=== PATIENT | female | born 1995 | race Caucasian/White ===

== ENCOUNTER 2018-07-20 19:10 | Observation (INO) | payer MEDICAID ==
[~2018-07-20] VITALS: Ht 172.7 cm; Wt 65.3 kg
[2018-07-20] MEDS ORDERED: LACTATED RINGERS 1,000 ML IV SCH (20:45)
[2018-07-20] MEDS ORDERED: PNV1TABL50 MT (20:45)
[2018-07-20] MEDS ORDERED: ACETAMINOPHEN 500MG TABLET PO NR (20:45)
== END 2018-07-20 21:45 | disposition home or self-care (01) ==
LOC: ER 19:10 → 8 EST LDRP 19:41
PROVIDERS: ADMIT Obstetrics & Gynecology; ATTEND Obstetrics & Gynecology
DX: O26.893 Other specified pregnancy related conditions, third trimester (principal); M54.9 Dorsalgia, unspecified; Z3A.38 38 weeks gestation of pregnancy
CPT/HCPCS: 99281; G0378; 96360; 96361

== ENCOUNTER 2018-08-01 21:56 | Observation (INO) | payer MEDICAID ==
[~2018-08-01] VITALS: Ht 172.7 cm; Wt 66.7 kg
[~2018-08-01 21:56] MED LIST: PNV1TABL50 MT
[2018-08-01] MEDS ORDERED: ROPIVACAINE HCL/PF EPIDURAL 200 ML EPI SCH (23:00)
[2018-08-01] MEDS ORDERED: DEXT 5%/LR + PITOCIN 20UNITS/L 1,000 ML IV SCH (23:04)
[2018-08-01] MEDS ORDERED: LACTATED RINGERS 1,000 ML IV SCH (23:04)
[2018-08-01] MEDS ORDERED: NALOXONE HCL 0.4 MG/ML 1ML VIAL IM PRN (23:15)
[2018-08-01] MEDS ORDERED: LIDOCAINE HCL 1% 20ML VIAL (Pyxis) INJ INFIL SCH (23:15)
[2018-08-01] MEDS ORDERED: METHYLERGONOVINE MALEATE 0.2 MG/ML IM PRN (23:15)
[2018-08-01] MEDS ORDERED: BUTORPHANOL TARTRATE 2 MG/ML VIAL IV PRN (23:15)
[2018-08-02 00:31] LABS: BASOPHILS % 0.5 % (0.0-2.0); HEMATOCRIT. 37.2 % (36.0-48.0); HEMOGLOBIN. 13.2 g/dL (12.0-16.0); LYMPHOCYTES % 15.6 % (20.0-50.0); MEAN CORPUSCULAR VOLUME 93.3 fL (81.0-99.0); MEAN PLATELET VOLUME 9.7 fl (7.4-10.4); MONOCYTES % 7.3 % (2.0-8.0); NEUTROPHILS % 75.6 % (40.0-76.0); PLATELET 193 x1000/uL (130-400); RED BLOOD CELL COUNT 3.99 mill/uL (4.2-5.4); RED CELL DISTRIBUTION WIDTH 12.6 % (11.6-14.6)
[2018-08-02 00:34] LABS: CLARITY URINE CLEAR (CLEAR); COLOR URINE YELLOW (YELLOW); KETONES URINE NEGATIVE (NEGATIVE); LEUKOCYTE ESTERASE URINE TRACE (NEGATIVE); NITRITE URINE NEGATIVE (NEGATIVE); OCCULT BLOOD URINE NEGATIVE (NEGATIVE); PH URINE 6.5 (4.5-8.0); PROTEIN URINE NEGATIVE (NEGATIVE); UROBILINOGEN URINE 0.2 E.U./dL (0.2-1.0)
[2018-08-02 00:37] LABS: INR 0.9; PARTIAL THROMBOPLASTIN TIME 25.8 sec (23.4-31.0); PROTHROMBIN TIME 9.3 sec (9.6-11.0)
[2018-08-02 00:42] LABS: *AMPHETAMINES SCREEN URINE NEGATIVE (NEGATIVE)
[2018-08-02 00:43] LABS: *BARBITURATES SCREEN URINE NEGATIVE (NEGATIVE); *BENZODIAZEPINES SCREEN URINE NEGATIVE (NEGATIVE); *COCAINE SCREEN URINE NEGATIVE (NEGATIVE); METHADONE URINE SCREEN NEGATIVE (NEGATIVE); OPIATES URINE SCREEN NEGATIVE (NEGATIVE); PHENCYCLIDINE URINE SCREEN NEGATIVE (NEGATIVE)
[2018-08-02 00:44] LABS: CANNABINOID URINE SCREEN NEGATIVE (NEGATIVE)
[2018-08-02 01:28] LABS: HEPATITIS B SURFACE ANTIGEN NEGATIVE
== END 2018-08-02 01:05 | disposition home or self-care (01) ==
LOC: 8 EST LDRP 21:56
PROVIDERS: ADMIT Obstetrics & Gynecology; ATTEND Obstetrics & Gynecology
DX: O62.9 Abnormality of forces of labor, unspecified (principal); O48.0 Post-term pregnancy; Z3A.40 40 weeks gestation of pregnancy
CPT/HCPCS: 36415; 80305; 81003; 85025; 85610; 85730; 86592; 86703; 86762; 86850; 86900; 86901; 87340; 96360; 99281; G0378

== ENCOUNTER 2018-08-02 09:15 | Observation (INO) | payer MEDICAID ==
[~2018-08-02] VITALS: Ht 172.7 cm; Wt 67.1 kg
[2018-08-02] MEDS ORDERED: ROPIVACAINE HCL/PF EPIDURAL 200 ML EPI SCH (09:45)
[2018-08-02] MEDS ORDERED: FENTANYL CITRATE/PF 50MCG/ML 2ML VIAL ONE (09:58)
[2018-08-02] MEDS ORDERED: LACTATED RINGERS 1,000 ML IV SCH (10:36)
[2018-08-02] MEDS ORDERED: CARBOPROST TROMETHAMINE 250 MCG/ML AMPUL IM PRN (10:45)
[2018-08-02] MEDS ORDERED: METHYLERGONOVINE MALEATE 0.2 MG/ML IM PRN (10:45)
[2018-08-02] MEDS ORDERED: NALOXONE HCL 0.4 MG/ML 1ML VIAL IM PRN (10:45)
[2018-08-02] MEDS ORDERED: LIDOCAINE HCL 1% 20ML VIAL (Pyxis) INJ INFIL SCH (10:45)
[2018-08-02] MEDS ORDERED: EPHEDRINE SULFATE 50MG/ML VIAL ONE (11:34)
[2018-08-02] MEDS: DEXT 5%/LR + PITOCIN 20UNITS/L 1,000 ML IV SCH ×2 (13:50→17:11)
[2018-08-02 18:40] VITALS: BP 116/69
[2018-08-02 20:00] VITALS: BP 112/64
[2018-08-02] MEDS ORDERED: DEXT 5%/LR + PITOCIN 20UNITS/L 1,000 ML IV SCH (20:23)
[2018-08-02] MEDS ORDERED: RHO(D) IMMUNE GLOBULIN 300 MCG/SYR IM PRN (20:30)
[2018-08-02] MEDS ORDERED: IBUPROFEN 400MG TABLET PO PRN (20:30)
[2018-08-02] MEDS ORDERED: LANOLIN OINT 0.25 GM TUBE TOP PRN (20:30)
[2018-08-02] MEDS ORDERED: DOCUSATE SODIUM 100MG CAPSULE PO SCH (21:00)
[2018-08-02] MEDS: IBUPROFEN 800MG TABLET PO PRN (22:47)
[2018-08-03 04:00] VITALS: BP 123/68
[2018-08-03 06:58] LABS: BASOPHILS % 0.4 % (0.0-2.0); EOSINOPHILS % 0.9 % (0.0-5.0); HEMATOCRIT. 30.3 % (36.0-48.0); HEMOGLOBIN. 10.6 g/dL (12.0-16.0); LYMPHOCYTES % 15.6 % (20.0-50.0); MEAN CORPUSCULAR HEMOGLOBIN 33.1 pg (28.0-32.0); MEAN CORPUSCULAR VOLUME 94.3 fL (81.0-99.0); MEAN PLATELET VOLUME 9.5 fl (7.4-10.4); MONOCYTES % 10.5 % (2.0-8.0); NEUTROPHILS % 72.6 % (40.0-76.0); PLATELET 144 x1000/uL (130-400); RED BLOOD CELL COUNT 3.21 mill/uL (4.2-5.4); RED CELL DISTRIBUTION WIDTH 12.3 % (11.6-14.6)
[2018-08-03 08:30] VITALS: BP 102/80
[2018-08-03] MEDS ORDERED: PRENATAL VIT/FE FUMARATE/FA TABLET PO SCH (09:00)
[2018-08-03] MEDS: IBUPROFEN 800MG TABLET PO PRN (10:21)
[2018-08-03 16:31] VITALS: BP 103/47
[2018-08-03 20:30] VITALS: BP 101/56
[2018-08-04 08:00] VITALS: BP 97/71
== END 2018-08-04 14:00 | disposition home or self-care (01) ==
LOC: 8 EST LDRP 09:15 → 8EST 18:55
PROVIDERS: ADMIT Obstetrics & Gynecology; ATTEND Obstetrics & Gynecology
DX: O48.0 Post-term pregnancy (principal); Z3A.40 40 weeks gestation of pregnancy
CPT/HCPCS: 36415; 85025; 96365; 96366; 99281; G0378; J2590; J2795; J3010; J3490; J7120; A4315